=== PATIENT | male | born 1955 | race Caucasian/White ===

== ENCOUNTER 2019-08-11 08:38 | Outpatient (CLI) | payer OTHER ==
--- NOTE | 2019-08-12 13:48 | MRI ---
MRI ABDOMEN WITH AND WITHOUT CONTRAST: Date: 08/11/2019 HISTORY: R16.0, liver mass. Z86.1, history of Hepatitis C. COMPARISON: Reference made to CT abdomen and pelvis dated 07/30/2015. FINDINGS: No significant pleural effusion. No pericardial fluid. Background marrow signal is normal. No hydronephrosis. Spleen is unremarkable. The adrenal glands are unremarkable. There is a large mass in hepatic segment V and VIII with peripheral centripetal enhancement which is discontinuous with . This is T2 hyperintense and indicative of hemangioma with michelle e sclerosing component. There is also a mass in hepatic segment III with flash arterial filling and T 2 signal hyperintensity measuring up to 2.2 cm indicative of a hemangioma. There are smaller 3-4 mm nonenhancing T2 hyperintense foci indicative of cysts, benign entities. The aortic contour is nonaneurysmal. No dilated loops of bowel in the upper abdomen. IMPRESSION: 1. Benign hepatic hemangiomas and hepatic cysts. 2. No suspicious enhancing hepatic mass. 3. No acute inflammatory process within the abdomen. POS: HOME
== END 2019-08-11 08:39 | disposition home or self-care (01) ==
LOC: BICMRI 08:38
PROVIDERS: ATTEND Physician Assistant Medical
DX: R16.0 Hepatomegaly, not elsewhere classified (principal); K76.89 Other specified diseases of liver; D18.03 Hemangioma of intra-abdominal structures; Z86.19 Personal history of other infectious and parasitic diseases
CPT/HCPCS: 74183; 82565